=== PATIENT | female | born 1960 | race American Indian/Alaskan Native ===

== ENCOUNTER 2021-01-11 06:53 | Day surgery (SDC) | payer BC, OTHER ==
[~2021-01-11 06:53] MED LIST: Dexamethasone 4 MG/ML 5 ML MDV ONE; Midazolam 1 MG/ML 2 ML SDV ONE; Ondansetron 4 MG/2 ML SDV ONE; Propofol 200 MG/20 ML SDV ONE; Rocuronium Bromide 50 MG/5 ML Syringe ONE; Succinylcholine/Sod PF 100 MG/5 ML SYRINGE IV ONE; fentaNYL 250 MCG/5 ML SDV ONE
[2021-01-11] MEDS ORDERED: Bupivacaine 0.25% 10 ML SDV ONE (07:39)
[2021-01-11] MEDS ORDERED: Octyl 2-Cyanoacrylate 1 Tube ONE (07:39)
--- NOTE | 2021-01-11 08:04 | PCM.HP.2 ---
H&P History of Present Illness - General Date of Service: 01/11/21 Source of Information: Patient History Limitations: Reports: No Limitations - History of Present Illness Initial Comments - Free Text/Narative: 59 year old female with history of left lower pelvic pain and cervical polyp. Saline sonohysterogram was attempted to further evaluate uterine cavity and polyp on 11/16/2020, however, patient did not tolerate procedure. Ultrasound at that time revealed a possible left hydrosalpinx. Today patient reports continued left lower pelvic pain. Denies vaginal discharge or bleeding. Has received preoperative clearance by PCP on 12/03/2020. - Related Data Allergies/Adverse Reactions: Allergies Allergy/AdvReac Type Severity Reaction Status Date / Time adhesive tape Allergy Rash Verified 01/11/21 07:15 chlorhexidine Allergy Rash Verified 01/07/21 08:56 clindamycin Allergy Stomach Verified 01/11/21 07:15 Upset codeine Allergy Stomach Verified 01/11/21 07:15 Upset oxycodone Allergy Stomach Verified 01/11/21 07:15 Upset povidone-iodine Allergy Rash Verified 01/11/21 07:15 [From Betadine] red dye Allergy Anaphylactic Verified 01/11/21 07:15 Shock soap [From Betadine] Allergy Rash Verified 01/11/21 07:15 Sulfa (Sulfonamide Allergy Stomach Verified 01/11/21 07:15 Antibiotics) Upset Home Medications: Home Meds Ascorbic Acid [Vitamin C] 1 tab PO DAILY 12/05/20 [History] Calcium Carb/Vit D3/Minerals [Calcium 600+D Plus Minerals] 1 tab PO DAILY 12/05/20 [History] Chlorpheniramine Maleate 4 mg PO BEDTIME 12/05/20 [History] Cholecalciferol (Vitamin D3) [Vitamin D3] 1,000 tab PO DAILY 12/05/20 [History] Diclofenac Sodium 50 mg PO DAILY 12/05/20 [History] Dorzolamide HCl/Timolol Maleat [Dorzolamide-Timolol Eye Drops] 1 drop EYEBOTH DAILY 12/05/20 [History] Gabapentin [Neurontin] 200 mg PO BEDTIME 12/05/20 [History] Latanoprost/Pf [Latanoprost 0.005% Eye Drop] 1 drop EYEBOTH BEDTIME 12/05/20 [History] Omeprazole 20 mg PO DAILY 12/05/20 [History] PARoxetine HCl [Paxil] 20 mg PO DAILY 12/05/20 [History] Potassium Gluconate [Potassium] 99 mg PO DAILY 12/05/20 [History] Simvastatin 20 mg PO BEDTIME 12/05/20 [History] Past Medical History HEENT History: Reports: Glaucoma Cardiovascular History: Reports: Arrhythmia, High Cholesterol, Hypertension Other Cardiovascular History: hx HTN in the past, no longer on medication, "have lost weight" Respiratory History: Reports: Other (See Below) Other Respiratory History: sleep apnea in the past, no longer uses CPAP due to weight loss Gastrointestinal History: Reports: GERD, Hiatal Hernia Other Gastrointestinal History: esophageal spasms Genitourinary History: Reports: None 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: Musculoskeletal History: Reports: Arthritis, Fracture Neurological History: Reports: Neuropathy, Peripheral Psychiatric History: Reports: Anxiety Other Psychiatric History: claustrophobic Endocrine/Metabolic History: Reports: Obesity/BMI 30+ Hematologic History: Reports: None Immunologic History: Reports: None Oncologic (Cancer) History: Reports: None Dermatologic History: Reports: None - Past Surgical History Head Surgeries/Procedures: Reports: None HEENT Surgical History: Reports: None Cardiovascular Surgical History: Reports: None Respiratory Surgical History: Reports: None GI Surgical History: Reports: Appendectomy, Cholecystectomy, Colonoscopy Female Surgical History: Reports: Breast Biopsy Endocrine Surgical History: Reports: None Neurological Surgical History: Reports: None Musculoskeletal Surgical History: Reports: Knee Replacement, Other (See Below) Other Musculoskeletal Surgeries/Procedures:: surgery for fx left foot with plate and screws, quyen knee replacement Oncologic Surgical History: Reports: Biopsy of Breast Dermatological Surgical History: Reports: None Social & Family History - Tobacco Use Tobacco Use Status *Q: Never Tobacco User - Recreational Drug Use Drug Use in Last 12 Months: No H&P Review of Systems - Review of Systems: Review Of Systems: See Below General: Reports: No Symptoms HEENT: Reports: No Symptoms Pulmonary: Reports: No Symptoms Cardiovascular: Reports: No Symptoms Gastrointestinal: Reports: Abdominal Pain Genitourinary: Reports: No Symptoms Musculoskeletal: Reports: No Symptoms Skin: Reports: No Symptoms Psychiatric: Reports: No Symptoms Neurological: Reports: No Symptoms Hematologic/Lymphatic: Reports: No Symptoms Immunologic: Reports: No Symptoms Exam - Exam Exam: See Below - Vital Signs Vital Signs: Last Vital Signs Temp 97.7 F 01/11/21 07:09 Pulse 57 L 01/11/21 07:09 Resp 16 01/11/21 07:09 BP 125/64 01/11/21 07:09 Pulse Ox 96 01/11/21 07:09 Weight: 229 lb - Exam General: Alert Lungs: Normal Respiratory Effort Cardiovascular: Regular Rate GI/Abdominal Exam: Soft, Non-Tender Back Exam: Full Range of Motion Extremities: Normal Range of Motion, Non-Tender, No Pedal Edema Skin: Warm, Dry, Intact Neuro Extensive - Mental Status: Normal Mood/Affect - Patient Data Lab Results Last 24 hrs: Laboratory Results - last 24 hr 01/11/21 01/11/21 Range/Units 05:55 07:11 WBC 5.29 (4.0-11.0) K/uL RBC 4.86 (4.30-5.90) M/uL Hgb 14.5 (12.0-16.0) g/dL Hct 44.5 (36.0-46.0) % MCV 91.6 (80.0-98.0) fL MCH 29.8 (27.0-32.0) pg MCHC 32.6 (31.0-37.0) g/dL RDW Std Deviation 44.8 (28.0-62.0) fl RDW Coeff of Rudy 13 (11.0-15.0) % Plt Count 255 (150-400) K/uL MPV 11.70 (7.40-12.00) fL Neut % (Auto) 64.3 (48.0-80.0) % Lymph % (Auto) 21.0 (16.0-40.0) % [place] % (Auto) 9.6 (0.0-15.0) % Eos % (Auto) 4.5 (0.0-7.0) % Baso % (Auto) 0.6 (0.0-1.5) % Neut # (Auto) 3.4 (1.4-5.7) K/uL Lymph # (Auto) 1.1 (0.6-2.4) K/uL [place] # (Auto) 0.5 (0.0-0.8) K/uL Eos # (Auto) 0.2 (0.0-0.7) K/uL Baso # (Auto) 0.0 (0.0-0.1) K/uL Nucleated RBC % 0.0 /100WBC Nucleated RBCs # 0 K/uL SARS-CoV-2 RNA (TIFFANIE) NEGATIVE (NEGATIVE) Result Diagrams: 01/11/21 07:11 Sepsis Event Note - Focused Exam Vital Signs: Vital Signs Temp Pulse Resp BP Pulse Ox 01/11/21 07:09 97.7 F 57 L 16 125/64 96 Problem List Initiated/Reviewed/Updated: Yes Assessment/Plan Comment:: 60 year old female with left lower pelvic pain and cervical polyp * Plan to proceed with diagnostic laparoscopy with possible left salpingectomy possible left oophorectomy with diagnostic hysteroscopy with polypectomy * Risks of procedures reviewed including infection, bleeding with rare need for blood transfusion, injury to surrounding structures and remote risk of . Questions elicited and answered.
--- NOTE | 2021-01-11 08:09 | PCM.PREANE ---
Preanesthetic Assessment - Anesthesia/Transfusion/Family Hx Anesthesia History: Prior Anesthesia Without Reaction Family History of Anesthesia Reaction: No Transfusion History: No Prior Transfusion(s) Intubation History: Unknown - Review of Systems General: No Symptoms Pulmonary: No Symptoms Cardiovascular: No Symptoms Gastrointestinal: No Symptoms Neurological: No Symptoms Other: Reports: None - Physical Assessment Vital Signs: Last Vital Signs Temp 36.5 C 01/11/21 07:09 Pulse 57 L 01/11/21 07:09 Resp 16 01/11/21 07:09 BP 125/64 01/11/21 07:09 Pulse Ox 96 01/11/21 07:09 Height: 5 ft 1.5 in Weight: 103.873 kg ASA Class: 3 Mental Status: Alert & Oriented x3 Airway Class: Mallampati = 3 Dentition: Reports: Normal Dentition Thyro-Mental Finger Breadths: 2 Mouth Opening Finger Breadths: 2 ROM/Head Extension: Limited/Partial Lungs: Clear to Auscultation, Normal Respiratory Effort Cardiovascular: Regular Rate, Regular Rhythm - Lab Values: Laboratory Last Values WBC 5.29 K/uL (4.0-11.0) 01/11/21 07:11 RBC 4.86 M/uL (4.30-5.90) 01/11/21 07:11 Hgb 14.5 g/dL (12.0-16.0) 01/11/21 07:11 Hct 44.5 % (36.0-46.0) 01/11/21 07:11 MCV 91.6 fL (80.0-98.0) 01/11/21 07:11 MCH 29.8 pg (27.0-32.0) 01/11/21 07:11 MCHC 32.6 g/dL (31.0-37.0) 01/11/21 07:11 RDW Std Deviation 44.8 fl (28.0-62.0) 01/11/21 07:11 RDW Coeff of Rudy 13 % (11.0-15.0) 01/11/21 07:11 Plt Count 255 K/uL (150-400) 01/11/21 07:11 MPV 11.70 fL (7.40-12.00) 01/11/21 07:11 Neut % (Auto) 64.3 % (48.0-80.0) 01/11/21 07:11 Lymph % (Auto) 21.0 % (16.0-40.0) 01/11/21 07:11 [place] % (Auto) 9.6 % (0.0-15.0) 01/11/21 07:11 Eos % (Auto) 4.5 % (0.0-7.0) 01/11/21 07:11 Baso % (Auto) 0.6 % (0.0-1.5) 01/11/21 07:11 Neut # (Auto) 3.4 K/uL (1.4-5.7) 01/11/21 07:11 Lymph # (Auto) 1.1 K/uL (0.6-2.4) 01/11/21 07:11 [place] # (Auto) 0.5 K/uL (0.0-0.8) 01/11/21 07:11 Eos # (Auto) 0.2 K/uL (0.0-0.7) 01/11/21 07:11 Baso # (Auto) 0.0 K/uL (0.0-0.1) 01/11/21 07:11 Nucleated RBC % 0.0 /100WBC 01/11/21 07:11 Nucleated RBCs # 0 K/uL 01/11/21 07:11 SARS-CoV-2 RNA (TIFFANIE) NEGATIVE (NEGATIVE) 01/11/21 05:55 - Allergies Allergies/Adverse Reactions: Allergies Allergy/AdvReac Type Severity Reaction Status Date / Time adhesive tape Allergy Rash Verified 01/11/21 07:15 chlorhexidine Allergy Rash Verified 01/07/21 08:56 clindamycin Allergy Stomach Verified 01/11/21 07:15 Upset codeine Allergy Stomach Verified 01/11/21 07:15 Upset oxycodone Allergy Stomach Verified 01/11/21 07:15 Upset povidone-iodine Allergy Rash Verified 01/11/21 07:15 [From Betadine] red dye Allergy Anaphylactic Verified 01/11/21 07:15 Shock soap [From Betadine] Allergy Rash Verified 01/11/21 07:15 Sulfa (Sulfonamide Allergy Stomach Verified 01/11/21 07:15 Antibiotics) Upset - Blood Blood Available: No - Anesthesia Plan Pre-Op Medication Ordered: None - Acknowledgements Anesthesia Type Planned: General Anesthesia Pt an Appropriate Candidate for the Planned Anesthesia: Yes Alternatives and Risks of Anesthesia Discussed w Pt/Guardian: Yes Pt/Guardian Understands and Agrees with Anesthesia Plan: Yes PreAnesthesia Questionnaire HEENT History: Reports: Glaucoma Cardiovascular History: Reports: Arrhythmia, High Cholesterol, Hypertension Other Cardiovascular History: hx HTN in the past, no longer on medication, "have lost weight", coronary angiogram in normal per patient Respiratory History: Reports: Other (See Below) Other Respiratory History: sleep apnea in the past, no longer uses CPAP due to weight loss Gastrointestinal History: Reports: GERD, Hiatal Hernia Other Gastrointestinal History: esophageal spasms Genitourinary History: Reports: None 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: Musculoskeletal History: Reports: Arthritis, Fracture Neurological History: Reports: Neuropathy, Peripheral Psychiatric History: Reports: Anxiety, Depression Other Psychiatric History: claustrophobic Endocrine/Metabolic History: Reports: Obesity/BMI 30+ (BMI 42.6) Hematologic History: Reports: None Immunologic History: Reports: None Oncologic (Cancer) History: Reports: None Dermatologic History: Reports: None - Past Surgical History Head Surgeries/Procedures: Reports: None HEENT Surgical History: Reports: None Cardiovascular Surgical History: Reports: None Respiratory Surgical History: Reports: None GI Surgical History: Reports: Appendectomy, Cholecystectomy, Colonoscopy Female Surgical History: Reports: Breast Biopsy Endocrine Surgical History: Reports: None Neurological Surgical History: Reports: None Musculoskeletal Surgical History: Reports: Knee Replacement (right in , left in ), Other (See Below) Other Musculoskeletal Surgeries/Procedures:: surgery for fx left foot with plate and screws, quyen knee replacement Oncologic Surgical History: Reports: Biopsy of Breast Dermatological Surgical History: Reports: None - SUBSTANCE USE Tobacco Use Status *Q: Never Tobacco User - HOME MEDS Home Medications: Home Meds Ascorbic Acid [Vitamin C] 1 tab PO DAILY 12/05/20 [History] Calcium Carb/Vit D3/Minerals [Calcium 600+D Plus Minerals] 1 tab PO DAILY 12/05/20 [History] Chlorpheniramine Maleate 4 mg PO BEDTIME 12/05/20 [History] Cholecalciferol (Vitamin D3) [Vitamin D3] 1,000 tab PO DAILY 12/05/20 [History] Diclofenac Sodium 50 mg PO DAILY 12/05/20 [History] Dorzolamide HCl/Timolol Maleat [Dorzolamide-Timolol Eye Drops] 1 drop EYEBOTH DAILY 12/05/20 [History] Gabapentin [Neurontin] 200 mg PO BEDTIME 12/05/20 [History] Latanoprost/Pf [Latanoprost 0.005% Eye Drop] 1 drop EYEBOTH BEDTIME 12/05/20 [History] Omeprazole 20 mg PO DAILY 12/05/20 [History] PARoxetine HCl [Paxil] 20 mg PO DAILY 12/05/20 [History] Potassium Gluconate [Potassium] 99 mg PO DAILY 12/05/20 [History] Simvastatin 20 mg PO BEDTIME 12/05/20 [History] - CURRENT (IN HOUSE) MEDS Current Meds: Current Medications Discontinued Medications Bupivacaine HCl (Bupivacaine 0.25% 10 Ml Sdv) Confirm Administered Dose 10 ml .ROUTE .STK-MED ONE Stop: 01/11/21 07:40 Dexamethasone (Dexamethasone 4 Mg/Ml 5 Ml Mdv) Confirm Administered Dose 20 mg .ROUTE .[employer]-MED ONE Stop: 01/11/21 05:58 Fentanyl (Fentanyl 250 Mcg/5 Ml Sdv) Confirm Administered Dose 250 mcg .ROUTE .[employer]MED ONE Stop: 01/11/21 05:57 Lidocaine HCl (Lidocaine 1% 5 Ml Sdv) Confirm Administered Dose 5 ml .ROUTE .[employer]-MED ONE Stop: 01/11/21 05:58 Midazolam HCl (Midazolam 1 Mg/Ml 2 Ml Sdv) Confirm Administered Dose 2 mg .ROUTE .[employer]MED ONE Stop: 01/11/21 05:57 Octyl Cyanoacrylate (Octyl 2-Cyanoacrylate 1 Tube) Confirm Administered Dose 1 applic .ROUTE .[employer]MED ONE Stop: 01/11/21 07:40 Ondansetron HCl (Ondansetron 4 Mg/2 Ml Sdv) Confirm Administered Dose 4 mg .ROUTE .[employer]MED ONE Stop: 01/11/21 05:58 Propofol (Propofol 200 Mg/20 Ml Sdv) Confirm Administered Dose 200 mg .ROUTE .[employer]MED ONE Stop: 01/11/21 05:56 Rocuronium [place] (Rocuronium [place] 50 Mg/5 Ml Syringe) Confirm Administered Dose 50 mg .ROUTE .[employer]-MED ONE Stop: 01/11/21 06:03
[2021-01-11] MEDS ORDERED: Glycopyrrolate 0.2 MG/ML SDV ONE ×2 (08:30→08:33)
[2021-01-11] MEDS ORDERED: ePHEDrine 50 MG/ML SDV ONE (08:36)
[2021-01-11] MEDS ORDERED: Sugammadex Sodium 200 MG/2 ML VIAL ONE ×2 (08:42→09:39)
[2021-01-11] MEDS ORDERED: Fluorescein 5 ML Vial ONE (08:42)
[2021-01-11] MEDS ORDERED: fentaNYL 100 MCG/2 ML SDV IVPUSH PRN (09:01)
--- NOTE | 2021-01-11 09:54 | PCM.OPNOTE ---
- General Post-Op/Procedure Note Date of Surgery/Procedure: 01/11/21 Operative Procedure(s): 1. Operative laparoscopy with excision of left paratubal cyst. 2. Polypectomy Findings: Anteverted uterus sounded to 10cm. Endocervical polyp. ~4cm left paratubal cyst. Normal appearing bilateral ovaries and right fallopian tube. Pre Op Diagnosis: 1. Left lower pelvic pain. 2. Endocervical polyp Post-Op Diagnosis: 1. Left lower pelvic pain. 2. Left paratubal cyst. 3. Endocervical polyp Anesthesia Technique: General ET Tube Primary Surgeon: Leesa Garza Supervisor [employer]: Luz Gray Fluid Replacement, Intraop: 850 Output, Urine Amount: 30 (straight cath prior to procedure) EBL in mLs: 20 Complications: Uterine perforation with manipulator Condition: Good Free Text/Narrative:: Intake & Output 01/10/21 01/11/21 01/11/21 22:59 06:59 14:59 Output Total 30 Balance -30 Dictation #[id number]
[2021-01-11] MEDS ORDERED: Acetaminophen 1,000 MG in Premix Bag 1 BAG IV ONE (10:15)
--- NOTE | 2021-01-11 10:31 | PCM.POSTAN ---
POST ANESTHESIA ASSESSMENT - MENTAL STATUS Mental Status: Alert, Oriented - VITAL SIGNS Vital Signs: Last Vital Signs Temp 36.5 C 01/11/21 07:09 Pulse 66 01/11/21 10:20 Resp 14 01/11/21 10:20 BP 135/81 01/11/21 10:20 Pulse Ox 97 01/11/21 10:20 - RESPIRATORY Respiratory Status: Respiratory Rate WNL, Airway Patent, O2 Saturation Stable - CARDIOVASCULAR CV Status: Pulse Rate WNL, Blood Pressure Stable - GASTROINTESTINAL GI Status: No Symptoms - PAIN Pain Score: 5 - POST OP HYDRATION Hydration Status: Adequate & Stable - OBSERVATIONS Free Text/Narrative:: No anesthesia problems
--- NOTE | 2021-01-11 12:07 | PCM48HPAN ---
Post Anesthesia Note - EVALUATION WITHIN 48HRS OF ANESTHETIC Vital Signs in Normal Range: Yes Patient Participated in Evaluation: Yes Respiratory Function Stable: Yes Airway Patent: Yes Cardiovascular Function Stable: Yes Hydration Status Stable: Yes Pain Control Satisfactory: Yes Nausea and Vomiting Control Satisfactory: Yes Mental Status Recovered: Yes Vital Signs: Last Vital Signs Temp 36.4 C 01/11/21 10:25 Pulse 78 01/11/21 11:25 Resp 16 01/11/21 11:25 BP 145/77 H 01/11/21 11:25 Pulse Ox 95 01/11/21 11:25 - COMMENTS/OBSERVATIONS Free Text/Narrative:: No anesthesia problems
--- NOTE | 2021-01-11 13:42 | OR ---
SURGEON: LEESA GARZA MD DATE OF PROCEDURE: 01/11/2021 PREOPERATIVE DIAGNOSES: 1. Left lower pelvic pain. 2. Endocervical polyp. POSTOPERATIVE DIAGNOSES: 1. Left lower pelvic pain. 2. Left paratubal cyst. 3. Endocervical polyp. PROCEDURES: 1. Operative laparoscopy with excision of left paratubal cyst. 2. Polypectomy. PRIMARY SURGEON: Leesa Garza MD SECONDARY SURGEON: Dr. Luz Gray. ANESTHESIA: General endotracheal. COMPLICATIONS: Uterine perforation with manipulator. ESTIMATED BLOOD LOSS: 20 mL. IV FLUID: 850 mL of crystalloid. URINE OUTPUT: 30 mL, straight cath prior to the procedure. FINDINGS: Anteverted uterus sounded to 10 cm. Endocervical polyp. Approximately 4 cm left paratubal cyst. Normal-appearing bilateral ovaries and right fallopian tube. PATHOLOGY: 1. Left paratubal cyst. 2. Endocervical polyp. DESCRIPTION OF PROCEDURE: The patient was taken to the operating room where anesthesia was induced. She was prepped and draped in a dorsal lithotomy position. A time-out was then held. An open-sided Graves speculum was then introduced into the vagina to visualize the cervix, which was grasped at 12 o'clock with an Allis. The uterus then sounded to 10 cm and serially dilated for placement of the uterine manipulator. Attention then turned to the abdomen. A 5 mm incision was made within the umbilicus after injection of local anesthetic. Veress needle was then inserted into the peritoneal cavity with opening pressure of 5. The abdomen was then insufflated with CO2 to a pressure of 13. The trocar was then inserted through the incision and the camera was then subsequently placed. Bilateral lower port sites were then also placed under direct visualization. Findings noted as above. The left paratubal cyst was then grasped and elevated and a LigaSure device was then used to cauterize and cut the cyst away from the posterior mesosalpinx. The cyst was fully excised and removed through the right lower quadrant port and sent to pathology. Hemostasis was achieved with the LigaSure device along the left mesosalpinx. Left fallopian tube and ovary appeared normal. Uterine perforation was noted with the uterine manipulator and balloon was visualized within the abdominal cavity. Inspection of the bowel and omentum was then performed and no injury was noted. The uterine manipulator was then removed and small amount of oozing was noted at the site of the fundus of the uterus. Manjinder was then placed over this area. Irrigation was then performed and hemostasis was achieved. All instruments were then removed from the abdomen and adequate desufflation was allowed to occur. The incisions were then closed with 4-0 Monocryl and Tegaderm. After hemostasis was achieved, attention then turned to the vaginal portion of procedure once again. Graves speculum was then inserted into the vagina to visualize the cervix. Due to the uterine perforation, hysteroscopy was not performed. The endocervical polyp was then grasped with ring forceps and removed intact and sent to pathology. Hemostasis was noted and all instruments removed from the vagina. The patient tolerated the procedure well. Sponge, lap, and needle counts were correct x2. Prophylactic antibiotics of Ancef were given prior to the procedure. The patient tolerated the procedure well and was taken to recovery room in stable condition. EMANUEL GONZALEZ /[id number]
== END 2021-01-11 11:45 | disposition home or self-care (01) ==
LOC: MW.SDS 06:53
PROVIDERS: ATTEND Obstetrics & Gynecology
DX: N83.8 Other noninflammatory disorders of ovary, fallopian tube and broad ligament (principal); N84.1 Polyp of cervix uteri; I10 Essential (primary) hypertension; E78.00 Pure hypercholesterolemia, unspecified; E66.9 Obesity, unspecified; Z68.41 Body mass index [BMI] 40.0-44.9, adult; Z01.812 Encounter for preprocedural laboratory examination; Z20.822 Contact with and (suspected) exposure to COVID-19; Z88.2 Allergy status to sulfonamides; Z88.8 Allergy status to other drugs, medicaments and biological substances; Z91.09 Other allergy status, other than to drugs and biological substances; Z98.890 Other specified postprocedural states
CPT/HCPCS: 36415; 57500; 58661; 85025; 87635; J0131; J0330; J0690; J1100; J2250; J2405; J2704; J3010; J3490; 00840; 88305; A9270-GY; U0002